=== PATIENT | female | born 1955 | race Caucasian/White ===

== ENCOUNTER 2022-11-01 21:23 | Emergency (ER) | payer MEDICARE ==
[2022-11-01] MEDS ORDERED: Tetracaine 0.5% PF 4 ML BOT ONE (22:41)
== END 2022-11-01 22:53 | disposition home or self-care (01) ==
LOC: CSHERS 21:23
DX: H10.32 Unspecified acute conjunctivitis, left eye (principal); E11.9 Type 2 diabetes mellitus without complications; E78.5 Hyperlipidemia, unspecified; I10 Essential (primary) hypertension
CPT/HCPCS: 99283